=== PATIENT | male | born 1960 | race Caucasian/White ===

== ENCOUNTER 2016-12-09 10:15 | Emergency (ER) | payer OTHER ==
[~2016-12-09] VITALS: Ht 172.7 cm; Wt 142.9 kg
--- NOTE | ~2016-12-09 | CT4 ---
[facility] A Service of [facility] RADIOLOGY TEXT RESULTS PATIENT: MARY KAY RYDER LOCATION: [facility] : 56 UNIT #: [id number] AGE: [address]: Eliu Hutson MD SEX: M ORDER DR: [id number] [facility] [address] [place], [place] [address] [id number] MR#: [id number] Acc #: [id number] NAME: MARY KAY RYDER. : 1960 SEX: M STUDY DATE/TIME: 12/09/2016 11:13 UNIT: [facility] ROOM: STUDY DESCRIPTION: CT Abd and Pelv Wo Cont Attending Physician: Eliu Hutson M.D. Ordering Physician: Eliu Hutson M.D. Primary Care Physician: Jeremi Oh M.D. MEDICAL IMAGING REPORT This report is preliminary unless electronic signature is present EXAM CT of abdomen and pelvis. INDICATIONS Low back pain/flank pain. Pain after lifting a family member. TECHNIQUE CT of the abdomen and pelvis without contrast. Coronal and sagittal reconstructions were obtained. This CT exam was performed with one or more of the following radiation dose reduction techniques: automatic exposure control, adjustment of mA and/or kV according to patient size, and iterative reconstruction. COMPARISON None available. FINDINGS ABDOMEN: There is minimal atelectasis/scarring in the right lung base. The liver is morphologically cirrhotic. Gallbladder is not distended. The pancreas, adrenal glands, are within normal limits. The spleen is enlarged measuring 15-16 cm in length. No urinary calculi. No hydronephrosis. The bowel is not dilated. No enlarged retroperitoneal or mesenteric lymph nodes. The appendix is normal. The abdominal aorta is normal in caliber. PELVIS: The bladder is unremarkable. No enlarged pelvic or inguinal lymph nodes. No acute osseous abnormalities. [facility] A Service [facility] RADIOLOGY TEXT RESULTS PATIENT: MARY KAY RYDER LOCATION: [facility] : 56 UNIT #: [id number] AGE: [address]: Eliu Hutson MD SEX: M ORDER DR: IMPRESSION 1. No acute findings of the abdomen and pelvis. 2. Cirrhosis and splenomegaly. Dictated by... Chucho Daigle M.D. THIS IS AN ELECTRONICALLY VERIFIED REPORT Chucho Daigle M.D. at 12/10/2016 1:27 PM YUDI/agustina TD: 12/10/2016 04:56 JOB #: [id number] MEDICAL IMAGING REPORT Page 1 of 1 COPY
--- NOTE | ~2016-12-09 | EKG ---
PATIENT: MARY KAY RYDER UNIT #: [id number] Ventricular Rate: 67 BPM Atrial Rate: 67 BPM P-R Interval: 182 ms QRS Duration: 86 ms Q-T Interval: 380 ms QTC Calculation(Bezet): 401 ms P Salol: 19 degrees Calculated R Salol: 8 degrees Calculated T Salol: 0 degrees Diagnosis Line: Normal sinus rhythm Diagnosis Line: Normal ECG Diagnosis Line: No previous ECGs available Diagnosis Line: Confirmed by SOL JOSE MD ([id number]) on 12/10/2016 Diagnosis Line: 11:04:36 PM INTERPRETING MD: DAMON DAVIS
[2016-12-09 12:30] LABS: POC - CKMB <1.0 ng/mL (0.0-7.9); POC - TROPONIN <0.05 ng/mL (<=0.05)
[2016-12-09 12:38] LABS: BASOPHIL% 0.3 % (0-2.5); EOSINOPHIL# 0.2 X10e3 (0-0.7); EOSINOPHIL% 4.2 % (0.0-7.0); HEMATOCRIT 41.2 % (38.0-50.0); HEMOGLOBIN 14.5 gm/dL (13.0-16.0); LYMPHOCYTE# 1.1 X10e3 (1.0-3.5); LYMPHOCYTE% 25.2 % (17.0-45.0); MEAN CELL VOLUME 87.6 FL (83-96); MEAN CORPUSCULAR HEMOGLOBIN 30.8 PG (28-34); MEAN CORPUSCULAR HGB CONC 35.2 g/dL (30-36); MONOCYTE# 0.3 X10e3 (0-1.0); MONOCYTE% 7.2 % (3.0-12.0); NEUTROPHIL# 2.8 X10e3 (1.5-7.1); NEUTROPHIL% 63.1 % (40-75); PLATELET COUNT 98 X10e3 (140-420); RED CELL DISTRIBUTION WIDTH 13.9 % (11.0-15.5); WHITE BLOOD COUNT 4.5 X10e3 (4.0-10.5)
[2016-12-09 12:51] LABS: BUN/CREATININE RATIO 17.27; CALCIUM SERUM 8.5 mg/dL (8.4-10.2); CREATININE SERUM 1.1 mg/dL (0.6-1.4); GLOM FILT RATE Estimated 73.6 mL/min (>60); POTASSIUM 3.8 mmol/L (3.5-5.1)
[2016-12-09 13:00] LABS: DIFF IND YES
[2016-12-09 13:06] LABS: PLATELET ESTIMATE DECREASED (NORMAL)
== END 2016-12-09 14:33 | disposition home or self-care (01) ==
LOC: CED 10:15
PROVIDERS: Emergency Medicine
DX: M54.5 Low back pain (principal); I10 Essential (primary) hypertension; E11.9 Type 2 diabetes mellitus without complications
CPT/HCPCS: 36415; 74176; 80048; 82553; 84484; 85025; 93005; 96374; 99284